=== PATIENT | female | born 1960 | race Caucasian/White ===

== ENCOUNTER 2017-05-18 06:53 | Emergency (ER) | payer OTHER ==
[2017-05-18 07:02] VITALS: BP 144/83
--- NOTE | 2017-05-18 08:03 | RAD ---
HISTORY: Right fifth digit pain COMPARISONS: None VIEWS: 3, Frontal, lateral, and oblique views of the right foot FINDINGS: BONE DENSITY: Normal. BONES: There is no displaced fracture, though evaluation of the fifth digit is limited secondary to technique. JOINTS: There is no arthropathy. ALIGNMENT: There is superior dislocation of the middle phalanx of the fifth digit with respect to the proximal phalanx at the fifth PIP joint SOFT TISSUES: Unremarkable. OTHER FINDINGS: None. IMPRESSION: FIFTH PIP JOINT DISLOCATION
[2017-05-18] MEDS ORDERED: Lidocaine 1%* 5 ML VIAL ONE (09:16)
[2017-05-18] MEDS ORDERED: Cephalexin CAP* 500 MG PO ONE (10:24)
[2017-05-18] MEDS ORDERED: Tetan/Diph/Pertus SYR(Tdap)* 0.5 ML SYR(BOOSTRIX) use SYR IM ONE (10:24)
--- NOTE | 2017-05-18 10:49 | RAD ---
Indication: Right fifth toe dislocation. 3 views of the right fifth toe demonstrates oblique fracture distal end of the proximal phalanx of the great toe. Slight dorsal displacement is noted. IMPRESSION: Oblique fracture distal and of the proximal phalanx of the fifth digit.
--- NOTE | 2017-05-18 18:53 | ED ---
Robbin Morales Angela, scribed for Iron Oakley MD on 05/18/17 at 0726 . Lower Extremity - HPI Summary HPI Summary: This pt is a 56 y/o female presenting to [facility] c/o right fifth toe pain s/p hitting it against the door frame this morning at 0530. Pt reports [place] when she hit her right fifth toe. She denies any other injury. Pt notes her toe is swollen. She denies weakness, numbness or tingling in LE. - History of Current Complaint Chief Complaint: EDExtremityLower Stated Complaint: RIGHT BABY TOE PAIN Time Seen by Provider: 05/18/17 07:17 Hx Obtained From: Patient Mechanism Of Injury: Blunt Trauma Onset of Pain: Immediate Pain Intensity: 4 Pain Scale Used: 0-10 Numeric Timing: Constant Location: Is Discrete @ - right fifth toe Associated Signs And Symptoms: Positive: Swelling. Negative: Weakness - Allergies/Home Medications Allergies/Adverse Reactions: Allergies Allergy/AdvReac Type Severity Reaction Status Date / Time No Known Allergies Allergy Verified 05/18/17 07:02 PMH/Surg Hx/FS Hx/Imm Hx Endocrine/Hematology History: Denies: Hx Diabetes Cardiovascular History: Denies: Hx Hypertension GI History: Reports: Hx Gastroesophageal Reflux Disease - Cancer History Hx Chemotherapy: No Hx Radiation Therapy: No - Surgical History Surgery Procedure, Year, and Place: TONSILLECTOMY. Tubal ligation Infectious Disease History: No Infectious Disease History: Denies: Traveled Outside the [place] in Last 30 Days - Family History Known Family History: Negative: Hypertension, Diabetes - Social History Alcohol Use: Weekly Substance Use Type: Reports: None Smoking Status (MU): Never Smoked Tobacco Review of Systems Negative: Fever, Chills Eyes: Negative ENT: Negative Cardiovascular: Negative Respiratory: Negative Gastrointestinal: Negative Genitourinary: Negative Positive: Other - right fifth toe pain Skin: Negative Negative: Weakness, Paresthesia, Numbness All Other Systems Reviewed And Are Negative: Yes Physical Exam - Summary Physical Exam Summary: VITAL SIGNS: Reviewed. GENERAL: Patient is a well-developed and nourished female who is lying comfortable in the stretcher. Patient is not in any acute respiratory distress. HEAD AND FACE: No signs of trauma. No ecchymosis, hematomas or skull depressions. No sinus tenderness. EYES: PERRLA, EOMI x 2, No injected conjunctiva, no nystagmus. EARS: Hearing grossly intact. Ear canals and tympanic membranes are within normal limits. MOUTH: Oropharynx within normal limits. NECK: Supple, trachea is midline, no adenopathy, no JVD, no carotid bruit, no c- spine tenderness, neck with full ROM. CHEST: Symmetric, no tenderness at palpation LUNGS: Clear to auscultation bilaterally. No wheezing or crackles. CVS: Regular rate and rhythm, S1 and S2 present, no murmurs or gallops appreciated. ABDOMEN: Soft, non-tender. No signs of distention. No rebound no guarding, and no masses palpated. Bowel sounds are normal. EXTREMITIES: FROM in all major joints, no cyanosis or clubbing. Right fifth digit has a little swelling, ecchymosis, and a slight deformation. NEURO: Alert and oriented x 3. No acute neurological deficits. Speech is normal and follows commands. SKIN: Dry and warm Triage Information Reviewed: Yes Vital Signs On Initial Exam: Initial Vitals Temp Pulse Resp BP Pulse Ox 97.7 F 66 16 144/83 98 05/18/17 06:55 05/18/17 06:55 05/18/17 06:55 05/18/17 06:55 05/18/17 06:55 Vital Signs Reviewed: Yes - [place] Coma Scale Coma Scale Total: 15 Procedures - Procedure Summary Procedure Summary: Using sterile techniques I injected lidocaine 1% for fifth toe block and reduced dislocation. Diagnostics - Vital Signs Vital Signs Temp Pulse Resp BP Pulse Ox 05/18/17 06:55 97.7 F 66 16 144/83 98 - Laboratory Lab Statement: Any lab studies that have been ordered have been reviewed, and results considered in the medical decision making process. - Radiology Right foot XR Xray Interpretation: Positive (See Comments) - IMPRESSION: fifth PIP joint dislocation. ED physician has reviewed this radiology report and agrees. Radiology Interpretation Completed By: Radiologist 5th right toe XR Xray Interpretation: Positive (See Comments) - IMPRESSION: Oblique fracture distal and of the proximal phalanx of the fifth digit. ED physician has reviewed this radiology report and agrees. Radiology Interpretation Completed By: Radiologist Lower Extremity Course/Dx - Course Assessment/Plan: This pt is a 56 y/o female presenting to [facility] c/o right fifth toe pain s/p hitting it against the door frame this morning at 0530. Pt [place] she hit her right fifth toe. She denies any other injury. Pt notes her toe is swollen. She denies weakness, numbness or tingling in LE. In the ED course, the pt has a right fifth PIP joint dislocation. Therefore, using sterile techniques I injected lidocaine for block of the toe and reduced dislocation. In the repeat XR, she has a small oblique fracture. We body tape toes and bandaged the foot and gave the pt Keflex since the pt had a slight abrasion. Pt was also given a tetanus shot. At this point, pt will be discharged home with follow up of PCP. Pt is hemodynamically stable, alert and oriented x3. - Diagnoses Differential Diagnosis/HQI/PQRI: Positive: Bursitis, Cellulitis, Fracture ( Closed), Gout, Sprain, Strain Provider Diagnoses: Toe dislocation, Toe fracture Discharge - Discharge Plan Condition: Stable Disposition: HOME Prescriptions: Cephalexin CAP* [Keflex CAP*] 500 mg PO TID #21 cap Patient Education Materials: Arthralgia (ED) Forms: *Work Release Referrals: Christy Pittman MD [Primary Care Provider] - Additional Instructions: Please follow up with your primary care provider. The documentation as recorded by the Robbin cordova Angela accurately reflects the service I personally performed and the decisions made by , Iron Oakley MD.
== END 2017-05-18 11:03 | disposition home or self-care (01) ==
LOC: ED 06:53
DX: S92.501A Displaced unspecified fracture of right lesser toe(s), initial encounter for closed fracture (principal); S93.104A Unspecified dislocation of right toe(s), initial encounter; W22.8XXA Striking against or struck by other objects, initial encounter; Y93.9 Activity, unspecified; Y92.9 Unspecified place or not applicable
CPT/HCPCS: 90471; 90715; 99282; A9270-GY